=== PATIENT | male | born 1960 ===

== ENCOUNTER 2025-04-01 14:12 | Outpatient (AMB) | payer OTHER, SELFPAY ==
[2025-04-01 14:21] VITALS: BP 130/84; PULSE 83; RESP 16; O2SAT 97; BMI 24.4
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
--- OUTSIDE RECORDS SUMMARY | 2025-04-01 14:45 | XMS_ITS | Clinical Summary ---
Author Organization [facility] Address [address] [place] [address] Care Team Providers Care Ambulatory Technologist Name Role Phone Unavailable Primary Care Provider Unavailabl e Social History Tobacco Use Types Packs/Day Years Used Date Smoking Tobacco: Never Assessed Sex and Gender Information Value Date Recorded Sex Assigned at Not on file Gender Identity Not on file Sexual Orientation Not on file Job Start Date Occupation Industry Not on file Not on file Not on file Plan of Treatment Not on file
--- OUTSIDE RECORDS SUMMARY | 2025-04-01 14:45 | XMS_ITS | Clinical Summary ---
Author Organization [place] [address] Jr [facility] Address [address] [place], [place] [address], [place] [address] Phone Care Team Providers Care Personal Lines Underwriter Name Role Phone Jan Brush MD Primary Care Provider [phone] Allergies Active Allergy Reactions Criticality Noted Date Comments Latex Swelling 08/25/2024 Penicillins Rash 08/25/2024 Medications fluticasone propionate (FLONASE) 50 mcg/actuation nasal spray Administer 2 sprays into each nostril 1 (one) time each day. 03/27/20 24 Active capsaicin (ZOSTRIX) 0.025 % cream Apply topically 2 (two) times a day. 60 g 10/10/19 25 026 Active amLODIPine (NORVASC) 10 mg tabletIndicatio ns:Essential hypertension Take 1 tablet (10 mg total) by mouth 1 (one) time each day. 90 each 1 01/02/20 25 Active famotidine (PEPCID) 20 mg tabletIndicatio ns:Cough, unspecified type Take 1 tablet (20 mg total) by mouth at bedtime as needed for heartburn. 90 tablet 1 02/03/20 25 Active lidocaine (LIDODERM) 5 % patchIndication s:Chest wall pain APPLY 1 PATCH DAILY APPLY TO PAINFUL AREA FOR 12 HOURS PER DAY, REMOVE FOR 12 HOURS 90 patch 1 02/03/20 25 Active tamsulosin (FLOMAX) 0.4 mg 24 hr capsuleIndicati ons:Benign prostatic hyperplasia with lower urinary tract symptoms Take 1 capsule (0.4 mg total) by mouth 1 (one) time each day. 90 capsule 1 02/03/20 25 Active cetirizine (ZyrTEC) 10 mg tabletIndicatio ns:Allergy, sequela Take 1 tablet (10 mg total) by mouth 1 (one) time each day. 90 each 1 02/03/20 25 Active finasteride (PROSCAR) 5 mg tablet Take 1 tablet (5 mg total) by mouth 1 (one) time each day. 03/03/20 25 Active omeprazole (PriLOSEC) [address] capsuleIndicati ons:Gastroesoph ageal reflux disease without esophagitis Take 1 capsule (40 mg total) by mouth 1 (one) time each day. 90 each 1 03/05/20 25 025 Active gabapentin (NEURONTIN) 300 mg capsule TAKE 1 CAPSULE BY MOUTH EVERYDAY AT BEDTIME 30 capsule 5 03/09/20 25 Active omeprazole (PriLOSEC) [address] capsule Take 1 capsule (40 mg total) by mouth 1 (one) time each day. 03/27/20 24 025 Discontinued(R eorder) gabapentin (NEURONTIN) 300 mg capsule Take 1 capsule (300 mg total) by mouth at bedtime. 30 each 2 10/10/19 25 025 Discontinued Active Problems Problem Noted Date Diagnosed Date Hx of laminectomy 09/09/2024 Overview (09/09/2024): L4-5 laminectomy for work injury 11/03 Benign prostatic hyperplasia with incomplete bladder emptying 08/19/2019 Lipoma of anterior chest wall 06/10/2019 Tubular adenoma of colon 03/30/2019 Transaminitis 02/03/2019 Sebaceous cyst 02/16/2014 Allergic rhinitis 10/30/2005 Esophageal reflux 10/30/2005 Backache 10/30/2005 Overview (09/09/2024): IMO update Encounters Date Type Department Care Team Description 03/19/2025 2:00 PM EDT Office Visit Orthopedic Surgery - [address] [place] [address] Rashaad Hui MD Numbness and tingling in left hand (Primary Dx); Traumatic tear of left rotator cuff, unspecified tear extent, subsequent encounter 03/05/2025 2:30 PM EDT Office Visit Internal Medicine - [address] [phone] Dannie Adam NP Anemia, unspecified type (Primary Dx); Gastroesophageal reflux disease without esophagitis; Chronic left shoulder pain 01/01/2025 3:05 PM EDT Lab Draw Station - [address] Weight loss; Blood glucose elevated; Abnormal liver function 01/01/2025 2:30 PM EDT Office Visit Internal Medicine - [address] [phone] Dannie Adam NP Essential hypertension (Primary Dx); Weight loss from Last 3 Months Immunizations Name Administration Dates Next Due Influenza Quadravalent, MDCK , 0.5ml, preservative free (Flucelvax) 6mo and older 07/27/2023,06/02/2020,09/03/2019 Influenza trivalent, with pr eservative (Fluzone; Afluria) 6mo and older 08/07/2012 Td Tetanus diptheria (Tdvax) 7yo and older 01/16 Tdap Tetanus diptheria acell ular pertussis (Boostrix; Adacel) 7yo and older 06/02/2020 Surgical History Surgery Date Site/Laterality Comments MULTIPLE TOOTH EXTRACTIONS PROCEDURE: HISTORICAL DENTAL EXTRACTION; COMMENT: 2 molars extracted LUMBAR LAMINECTOMY 2002 workcom PROCEDURE: HISTORICAL LUMB LAMINECTOMY; COMMENT: L45 disc [facility] ESOPHAGOGASTRODUODENOSCOPY 03/27/2019 PROCEDURE: WI EGD TRANSORAL BIOPSY SINGLE/MULTIPLE; COMMENT: Dx Gastritis. Dr Trammell COLONOSCOPY 03/27/2019 PROCEDURE: HISTORICAL COLONOSCOPY; COMMENT: two 4 to 8mm polyps ascending colon, 2 diminutive in descending OTHER SURGICAL HISTORY 04/22/2020 PROCEDURE: WI BIOPSY PROSTATE INCISIONAL ANY APPROACH; COMMENT: benign (elevated PSA) CYST REMOVAL 10/01/1981 - 09/30/1982 Right wrist Medical History Medical History Date Comments Esophageal reflux 10/30/2005 DX:Esophageal reflux Allergic rhinitis, cause unspecified 10/30/2005 DX:Allergic rhinitis, cause unspecified Backache, unspecified 10/30/2005 DX:Backach e, unspecified Transaminitis 02/03/2019 DX:Transaminitis Gastritis 03/30/2019 DX:Gastritis Colon polyps 03/30/2019 DX:Colon polyps Helicobacter pylori gastritis 04/14/2019 DX :Helicobacter pylori gastritis Family History Medical History Relation Name Comments Stroke Father Other: sudden Mother Relation Name Status Comments Brother Alive x3 healthy Father Katharine, stomac h problems Mother (Age 72) 2003 HTN Sister Alive x4 healthy Social History Tobacco Use Types Packs/Day Years Used Date Smoking Tobacco: Former Cigarettes 1 20 0 10/01/1979 - 10/01/1999 Passive Smoke Exposure: Never Smokeless Tobacco: Former Tobacco Cessation:Counseling Given: Not Answered Alcohol Use Standard Drinks/Week Comments No 0 (1 standard drink = 0.6 oz pur e alcohol) Sex and Gender Information Value Date Recorded Sex Assigned at Not on file Legal Sex Male 12:07 AM EST Gender Identity Not on file Sexual Orientation Not on file Obstetrics History Last Filed Vital Signs Vital Sign Reading Time Taken Comments Blood Pressure 125/75 03/05/2025 2:32 PM EDT Pulse 84 03/05/2025 2:32 PM EDT Temperature 36.6 C (97.9 F) 12/11/2024 8:32 AM EDT Respiratory Rate - - Oxygen Saturation 98% 01/01/2025 2:17 PM EDT Inhaled Oxygen Concentration - - Weight 68 kg (150 lb) 03/19/2025 1:58 PM EDT Height 180.3 cm (5' 11 ) 03/19/2025 1:58 PM EDT Body Mass Index 20.92 03/19/2025 1:58 PM EDT Plan of Treatment Upcoming Encounters Date Type Department Care Team (Late st Contact Info) Description 04/20/2025 2:30 PM EDT Office Visit Orthopedic Surgery - [place] [address] [facility] [address] [place] [phone] Rashaad Hui MD [address] [facility] [address] [place] [address] 09/07/2025 2:30 PM EST Office Visit Internal Medicine - [facility] [address] [place], [place] [phone] Jan Brush MD [address] [place] [address] Health Maintenance Due Date Last Done Comments Pneumococcal Vaccine: 50+ Years (1 of 1 - PCV) 2010 Zoster Vaccines (1 of 2) 2010 Depression Screening 09/09/2022 Social Influencers of Health Screening 09/09/2022 COVID-19 Vaccine ( season) 2024 01/19/2022, 09/01/2021, 01/24/2021, Additional history exists Hypertension/CHF/CAD Annual BMP Blood Test 12/11/2025 12/11/2024, 03/27/2024, 03/27/2024 Cholesterol Screening (Lipid Panel) 03/27/2029 03/27/2024, 03/27/2024 DTaP,Tdap,and Td Vaccines (4 - Td or Tdap) 06/02/2030 06/02/2020, 02/19/2012, 01/17/2008 Colorectal Cancer Screening: Colonoscopy 04/16/2034 04/16/2024 RSV Immunization Adult Patients (1 - 1-dose 75+ series) 2035 HIV Screening Completed 07/03/2012 Hepatitis C Screening Completed 01/16/2022 Influenza Vaccine Completed 08/19/2024, , 06/02/2020, Additional history exists HIB Vaccines Aged Out No longer eligi ble based on patient's age to complete this topic HPV Vaccines Aged Out No longer eligi ble based on patient's age to complete this topic Hepatitis A Vaccines Aged Out No long er eligible based on patient's age to complete this topic Hepatitis B Vaccines Aged Out No long er eligible based on patient's age to complete this topic IPV Vaccines Aged Out No longer eligi ble based on patient's age to complete this topic MMR Vaccines Aged Out No longer eligi ble based on patient's age to complete this topic Meningococcal ACWY Vaccine Aged Out N o longer eligible based on patient's age to complete this topic Meningococcal B Vaccine Aged Out No l onger eligible based on patient's age to complete this topic Pneumococcal Vaccine: Pediatrics (0 to 5 Years) and At-Risk Patients (6 to 64 Years) Aged Out No longer eligible based on patient's age to complete this topic RSV Immunization Patients Under 20 months Aged Out No longer eligible based on patient's age to complete this topic Varicella Vaccines Aged Out No longer eligible based on patient's age to complete this topic Procedures Procedure Name Priority Date/Time Associated Diagnosis Comments CBC WITH AUTO DIFFERENTIAL Routine 03/05/2025 3:18 PM EDT Anemia, unspecified type CBC AND DIFFERENTIAL Routine 03/05/2025 3:18 PM EDT Anemia, unspecified type VITAMIN B12 Routine 03/05/2025 3:18 PM EDT Anemia, unspecified type FOLATE Routine 03/05/2025 3:18 PM EDT Anemia, unspecified type IRON AND TIBC Routine 03/05/2025 3:18 PM EDT Anemia, unspecified type CBC WITH AUTO DIFFERENTIAL Routine 01/01/2025 3:11 PM EDT Weight loss HEPATIC FUNCTION PANEL Routine 3:11 PM EDT Abnormal liver function HEMOGLOBIN A1C Routine 01/01/2025 3:11 PM EDT Blood glucose elevated CBC AND DIFFERENTIAL Routine 01/01/2025 3:11 PM EDT Weight loss COMPREHENSIVE METABOLIC PANEL Routine 12/11/2024 9:41 AM EDT Screening for metabolic disorder COLONOSCOPY Routine 04/16/2024 LIPID PANEL Routine 03/27/2024 HEPATITIS C SCREENING Routine 01/16/2022 HIV SCREENING Routine 07/03/2012 from Last 3 Months or Most Recently Relevant to Health Maintenance Results * (ABNORMAL) CBC auto differential (03/05/2025 3:18 PM EDT) Only the most recent of2 resultswithin the time period is included. [facility] Signature WBC 5.6 4.8 - 10.8 K/mcL LAB [facility] RBC 3.70(L) 4.50 - 5.50 M/mcL LAB HEMETOLOGY METHOD 03/05/2025 6:43 PM EDT [facility] Hemoglobin 12.8(L) 13.5 - 17.5 g/dL LAB HEMETOLOGY METHOD 03/05/2025 6:43 [facility] Hematocrit 39.2(L) 42.0 - 54.0 % LAB HEMETOLOGY METHOD 03/05/2025 6:43 PM [facility] MCV 105.4(H) 79.0 - 98.0 FL LAB HEMETOLOGY METHOD 03/05/2025 6:43 PM [facility] MCH 34.4(H) 27.0 - 32.0 pcg LAB HEMETOLOGY METHOD 03/05/2025 6:43 [facility] MCHC 32.7 32.0 - 37.0 g/dL LAB HEMETOLOGY METHOD 03/05/2025 6:43 PM [facility] RDW 13.0 11.0 - 15.0 % LAB HEMETOLOGY METHOD 03/05/2025 6:43 [facility] Platelets 244 130 - 400 K/mcL LAB HEMETOLOGY METHOD 03/05/2025 6:43 [facility] MPV 9.6 7.0 - 11.0 FL LAB HEMETOLOGY METHOD 03/05/2025 6:43 PM [facility] NRBC 0.0 <1.0 % LAB HEMETOLOGY METHOD 03/05/2025 6:43 PM [facility] NRBC Absolute 0.00 <0.10 K/mcL LAB HEMETOLOGY METHOD 03/05/2025 6:43 PM [facility] Neutrophils Relative 66.5 % LAB HEMETOLOGY METHOD 03/05/2025 6:43 PM [facility] Lymphocytes Relative 25.2 % LAB HEMETOLOGY METHOD 03/05/2025 6:43 PM [facility] Monocytes Relative 5.9 % LAB HEMETOLOGY METHOD 03/05/2025 6:43 PM [facility] Eosinophils Relative 1.4 % LAB HEMETOLOGY METHOD 03/05/2025 6:43 PM [facility] Basophils Relative 0.5 % LAB HEMETOLOGY METHOD 03/05/2025 6:43 PM [facility] Immature Granulocytes Relative 0.5 % LAB HEMETOLOGY METHOD 03/05/2025 6:43 PM [facility] Neutrophils Absolute 3.75 1.50 - 7.00 K/mcL LAB HEMETOLOGY METHOD 03/05/2025 6:43 PM [facility] Lymphocytes Absolute 1.42 1.00 - 5.00 K/mcL LAB HEMETOLOGY METHOD 03/05/2025 6:43 PM [facility] Monocytes Absolute 0.33 0.20 - 1.00 K/mcL LAB HEMETOLOGY METHOD 03/05/2025 6:43 PM [facility] Eosinophils Absolute 0.08 0.00 - 0.50 K/mcL LAB HEMETOLOGY METHOD 03/05/2025 6:43 PM [facility] Basophils Absolute 0.03 0.00 - 0.20 K/mcL LAB HEMETOLOGY METHOD 03/05/2025 6:43 PM [facility] Immature Granulocytes Absolute 0.03 0.00 - 0.03 K/[facility] LAB HEMETOLOGY METHOD 03/05/2025 6:43 PM EDT [facility] Blood Venous blood specimen / Unknown Venipuncture / Unknown 03/05/2025 3:18 PM EDT 03/05/2025 3:18 PM EDT Dannie Adam NP LAB BLOOD ORDERABLES Final Res ult [facility] [address] [place] [address], [place] [phone] * Iron and TIBC (03/05/2025 3:18 PM EDT) Iron 117 50 - 160 mcg/dL LAB CHEMISTRY METHOD 03/05/2025 7:33 PM EDT [facility] TIBC 296 250 - 450 mcg/dL LAB CHEMISTRY METHOD 03/05/2025 7:33 PM EDT [facility] Iron Saturation 40 20 - 50 % LAB CHEMISTRY METHOD 03/05/2025 7:33 PM EDT [facility] Blood Venous blood specimen / Unknown Venipuncture / Unknown 03/05/2025 3:18 PM EDT 03/05/2025 3:18 PM EDT us Dannie Adam NP LAB BLOOD ORDERABLES Final Res ult [facility] [address] [place] [address], [place] [phone] * Folate (03/05/2025 3:18 PM EDT) Folate 13.0 2.8 - 17.0 ng/ml LAB CHEMISTRY METHOD 03/05/2025 7:33 PM EDT [facility] Blood Venous blood specimen / Unknown Venipuncture / Unknown 03/05/2025 3:18 PM EDT 03/05/2025 3:18 PM EDT us Dannie Adam SURGICAL ASSIST LAB BLOOD ORDERABLES Final Res ult [facility] [address] [place] [address], [place] [phone] * Vitamin B12 (03/05/2025 3:18 PM EDT) [facility] Vitamin B-12 340 250 - 900 pcg/mL LAB CHEMISTRY METHOD 03/05/2025 7:33 PM EDT [facility] Blood Venous blood specimen / Unknown Venipuncture / Unknown 03/05/2025 3:18 PM EDT 03/05/2025 3:18 PM EDT us Dannie Adam SURGICAL ASSIST LAB BLOOD ORDERABLES Final Res ult Performing Organization Address [facility]/ZIP Co de Phone Number [facility] [address] [place] [address], [place] [phone] * Hemoglobin A1c (01/01/2025 3:11 PM EDT) [facility] Hemoglobin A1C 5.2 <6.5 % LAB CHEMISTRY METHOD 01/01/2025 11:10 PM EDT [facility] Mean Bld Glu Estim. 103 mg/dL LAB CHEMISTRY METHOD 01/01/2025 11:10 PM EDT [facility] Blood Venous blood specimen / Unknown Venipuncture / Unknown 01/01/2025 3:11 PM EDT 01/01/2025 3:11 PM EDT us Elenita Ho SURGICAL ASSIST LAB BLOOD ORDERABLES Final R esult Performing Organization Address City/[facility]/ZIP Co de Phone Number [facility] [address] [place] [address], [place] [phone] * (ABNORMAL) Hepatic function panel (01/01/2025 3:11 PM EDT) Pathologist [facility] Total Protein 6.8 6.0 - 8.0 g/dL LAB CHEMISTRY METHOD 01/01/2025 7:19 PM EDT [facility] Albumin 3.8 3.2 - 5.0 g/dL LAB CHEMISTRY METHOD 01/01/2025 7:[facility] PM [facility] Total Bilirubin 0.5 0.0 - 1.4 mg/dL LAB CHEMISTRY METHOD 01/01/2025 7:19 PM [facility] Bilirubin, Direct 0.2 0.0 - 0.3 mg/dL LAB CHEMISTRY METHOD 01/01/2025 7:19 PM [facility] Bilirubin, Indirect 0.3 0.0 - 1.1 mg/dL LAB CHEMISTRY METHOD 01/01/2025 7:19 PM [facility] ALT (SGPT) 63(H) 10 - 60 unit/L LAB CHEMISTRY METHOD 01/01/2025 7:19 PM [facility] AST (SGOT) 37 10 - 42 unit/L LAB CHEMISTRY METHOD 01/01/2025 7:19 PM [facility] Alkaline Phosphatase 98 42 - 121 unit/L LAB CHEMISTRY METHOD 01/01/2025 7:19 PM [facility] Blood Venous blood specimen / Unknown Venipuncture / Unknown 01/01/2025 3:11 PM EDT 01/01/2025 3:11 PM EDT us Elenita Ho SURGICAL ASSIST LAB BLOOD ORDERABLES Final R esult [facility] [address] [place] [address], [place] [phone] * (ABNORMAL) Comprehensive metabolic panel (12/11/2024 9:41 AM EDT) [facility] Sodium 139 133 - 145 mmol/L LAB CHEMISTRY METHOD 12/11/2024 2:53 PM [facility] Potassium 4.4 3.5 - 5.5 mmol/L LAB CHEMISTRY METHOD 12/11/2024 2:53 PM [facility] Chloride 104 96 - 110 mmol/L LAB CHEMISTRY METHOD 12/11/2024 2:53 PM [facility] CO2 31 21 - 32 mmol/L LAB CHEMISTRY METHOD 12/11/2024 2:53 PM [facility] Anion Gap 4 3 - 11 LAB CHEMISTRY METHOD 12/11/2024 2:53 PM [facility] Glucose 102(H) 70 - 100 mg/dL LAB CHEMISTRY METHOD 12/11/2024 2:53 PM [facility] BUN 12 5 - 25 mg/dL LAB CHEMISTRY METHOD 12/11/2024 2:53 PM [facility] Creatinine 0.88 0.70 - 1.30 mg/dL LAB CHEMISTRY METHOD 12/11/2024 2:53 PM [facility] eGFR 96 >=60 mL/min/1. 73m2 LAB CHEMISTRY METHOD 12/11/2024 2:53 PM [facility] Comment:Calculation based on the Chronic Kidney Disease Epidemiology Collaboration (CKD-EPI) equation refit without adjustment for race. BUN/Creatinine Ratio 13.6 LAB CHEMISTRY METHOD 12/11/2024 2:53 PM [facility] Calcium 9.5 8.5 - 10.5 mg/dL LAB CHEMISTRY METHOD 12/11/2024 2:53 PM [facility] AST (SGOT) 116(H) 10 - 42 unit/L LAB CHEMISTRY METHOD 12/11/2024 2:53 PM [facility] ALT (SGPT) 96(H) 10 - 60 unit/L LAB CHEMISTRY METHOD 12/11/2024 2:53 PM [facility] Alkaline Phosphatase 101 42 - 121 unit/L LAB CHEMISTRY METHOD 12/11/2024 2:53 PM EDT [facility] Total Protein 6.7 6.0 - 8.0 g/dL LAB CHEMISTRY METHOD 12/11/2024 2:53 PM EDT [facility] Albumin 3.8 3.2 - 5.0 g/dL LAB CHEMISTRY METHOD 12/11/2024 2:53 PM EDT [facility] Total Bilirubin 0.5 0.0 - 1.4 mg/dL LAB CHEMISTRY METHOD 12/11/2024 2:53 PM EDT [facility] Blood Venous blood specimen / Unknown Venipuncture / Unknown 12/11/2024 9:41 AM EDT 12/11/2024 9:41 AM EDT Elenita Ho NP LAB BLOOD ORDERABLES Final R esult [facility] [address] [place] [address], [place] [phone] * Colonoscopy (04/16/2024) [facility] Colonoscopy No Interpretation , Abstracted Anatomical Region Laterality Modality Other [facility] Provider HEALTH MAINTENANCE Final Result * (ABNORMAL) Lipid panel (03/27/2024) [facility] LDL/HDL Ratio 3 0 - 4 Triglycerides 202(A) 0 - 150 mg/dL Cholesterol 178 0 - 200 mg/dL HDL 57 >=40 mg/dL LDL Cholesterol 81 0 - 100 mg/dL Blood Venous blood specimen / Unknown Historical Provider LAB BLOOD ORDERABLES Angela l Result * Hepatitis C Screening (01/16/2022) [facility] Hepatitis C Screening Abstracted Historical Provider HEALTH MAINTENANCE Final Result * HIV Screening (07/03/2012) HIV Screening Abstracted us Historical Provider HEALTH MAINTENANCE Final Result from Last 3 Months or Most Recently Relevant to Health Maintenance Insurance [facility] Care Teams Personal Lines Underwriter Relationship Specialty Start Date End Date Jan Brush MD [address] [place] [id number] PCP - General Internal Medicine 08/12/20
== END 2025-04-01 14:41 | disposition home or self-care (01) ==
LOC: HO.PMC 14:12
PROVIDERS: PCP Internal Medicine; Referring Provider Nurse Practitioner Primary Care; Visit Provider Anesthesiology
DX: M54.12 Radiculopathy, cervical region (principal); M50.30 Other cervical disc degeneration, unspecified cervical region; M47.812 Spondylosis without myelopathy or radiculopathy, cervical region
CPT/HCPCS: 99203

== ENCOUNTER → 2025-04-01 14:12 | Outpatient (BNVA) | payer OTHER, SELFPAY | PROVIDERS: PCP Internal Medicine; Referring Provider Nurse Practitioner Primary Care; Visit Provider Anesthesiology | DX: M54.12 Radiculopathy, cervical region (principal); M50.30 Other cervical disc degeneration, unspecified cervical region; M47.812 Spondylosis without myelopathy or radiculopathy, cervical region | CPT/HCPCS: 99202 ==

== ENCOUNTER → 2025-04-16 17:31 | Outpatient (BNV) | payer OTHER, SELFPAY | PROVIDERS: Visit Provider Radiology Diagnostic Radiology | DX: M54.12 Radiculopathy, cervical region (principal) | CPT/HCPCS: 72141 ==

== ENCOUNTER 2025-04-16 17:36 | Outpatient (REF) | payer OTHER, SELFPAY ==
--- NOTE | ~2025-04-16 | MR_ITS ---
EXAMINATION: MR CERVICAL SPINE WITHOUT CONTRAST CLINICAL INFORMATION: Radiculopathy, cervical region. Coronary accident last August, neck pain and stiffness. 64-year-old male. COMPARISON: None TECHNIQUE: Multiplanar multisequence MR imaging of the cervical spine was done prior to and without the administration IV gadolinium. Examination was performed on a 1.5 Abena Siemens unit, using standard sequences. FINDINGS: CORONAL ALIGNMENT: -Normal. SAGITTAL ALIGNMENT: -Normal lordosis. No subluxations. CRANIOCERVICAL JUNCTION/C1-2 ARTICULATIONS: -Intact and aligned. VERTEBRAL BODIES/BONE MARROW: -No fractures, compression deformities, or suspicious infiltrating bone marrow signal abnormalities. -No gross bone marrow edema. -There is a hemangioma in C6. DISCS: -Mild diffuse loss of disc signal without significant loss of disc height. CERVICAL CORD: -Normal in signal and caliber throughout. No expansion or thinning. No cord impingement present. PARAVERTEBRAL SOFT TISSUES: -Normal. No paravertebral or paraspinous edema or abnormal fluid collection. -The thyroid is obscured by a saturation band. VISUALIZED INTRACRANIAL STRUCTURES: -Within normal limits. AXIAL DISC SPACE IMAGING: C2-C3: No central canal or neural foraminal narrowing. Normal facets. C3-C4: There is mild right uncinate spurring. Normal facets. There is no central canal narrowing. There is mild right and minimal left neural foraminal narrowing. C4-C5: There is very mild bilateral uncinate spurring. There is early degenerative facet change bilaterally. No central canal narrowing. There is mild right greater than left neural foraminal narrowing. C5-C6: There is a small central disc protrusion which indents upon the ventral thecal sac but does not contact cord. This does not result in significant central canal narrowing. Minimal uncinate spurring bilaterally. Normal facets. There is mild right greater than left neural foraminal narrowing. C6-C7: Minimal shallow concentric disc bulge, mild bilateral uncinate spurring, normal appearing facets, with findings resulting in minimal central canal narrowing, and mild right greater than left neural foraminal narrowing. C7-T1: There is a small central disc protrusion which indents upon the ventral thecal sac but does not contact the cord. There is minimal central canal narrowing. Mild bilateral uncinate spurring is present, normal appearing facets, resulting in minimal bilateral neural foraminal narrowing. T1-T4: There is no central canal or neural foraminal narrowing. MR/MR cervical spine wo con IMPRESSION: 1. Mild spondylosis of the cervical spine. There is no evidence of significant central canal narrowing or cord impingement. Scattered mild neural foraminal narrowings. 2. The cord is normal in caliber and signal throughout. 3. There is no bone marrow edema or acute bony abnormality. Electronically signed by: Ru Silva MD 04/17/2025 08:19 AM EDT
--- OUTSIDE RECORDS SUMMARY | 2025-04-16 17:38 | XMS_ITS | Clinical Summary ---
Author Organization [place] [address] [facility] Address [address] [place], [place] [address], [place] [address] Phone Care Team Providers Care Desk Operator Name Role Phone Jan Brush MD Primary Care Provider [phone] Allergies Active Allergy Reactions Criticality Noted Date Comments Latex Swelling 08/25/2024 Penicillins Rash 08/25/2024 Medications fluticasone propionate (FLONASE) 50 mcg/actuation nasal spray Administer 2 sprays into each nostril 1 (one) time each day. 4 Active capsaicin (ZOSTRIX) 0.025 % cream Apply topically 2 (two) times a day. 60 g 5 10/10/19 26 Active amLODIPine (NORVASC) 10 mg tabletIndications :Essential hypertension Take 1 tablet (10 mg total) by mouth 1 (one) time each day. 90 each 1 5 Active famotidine (PEPCID) 20 mg tabletIndications :Cough, unspecified type Take 1 tablet (20 mg total) by mouth at bedtime as needed for heartburn. 90 tablet 1 5 Active lidocaine (LIDODERM) 5 % patchIndications: Chest wall pain APPLY 1 PATCH DAILY APPLY TO PAINFUL AREA FOR 12 HOURS PER DAY, REMOVE FOR 12 HOURS 90 patch 1 5 Active tamsulosin (FLOMAX) 0.4 mg 24 hr capsuleIndication s:Benign prostatic hyperplasia with lower urinary tract symptoms Take 1 capsule (0.4 mg total) by mouth 1 (one) time each day. 90 capsule 1 5 Active cetirizine (ZyrTEC) 10 mg tabletIndications :Allergy, sequela Take 1 tablet (10 mg total) by mouth 1 (one) time each day. 90 each 1 5 Active finasteride (PROSCAR) 5 mg tablet Take 1 tablet (5 mg total) by mouth 1 (one) time each day. 5 Active omeprazole (PriLOSEC) [address] capsuleIndication s:Gastroesophagea l reflux disease without esophagitis Take 1 capsule (40 mg total) by mouth 1 (one) time each day. 90 each 1 5 09/01/20 25 Active gabapentin (NEURONTIN) 300 mg capsule TAKE 1 CAPSULE BY MOUTH EVERYDAY AT BEDTIME 30 capsule 5 5 Active Active Problems Problem Noted Date Diagnosed Date Hx of laminectomy 09/09/2024 Overview (09/09/2024): L4-5 laminectomy for work injury 11/03 Benign prostatic hyperplasia with incomplete bladder emptying 08/19/2019 Lipoma of anterior chest wall 06/10/2019 Tubular adenoma of colon 03/30/2019 Transaminitis 02/03/2019 Sebaceous cyst 02/16/2014 Allergic rhinitis 10/30/2005 Esophageal reflux 10/30/2005 Backache 10/30/2005 Overview (09/09/2024): IMO update Encounters Date Type Department Care Team Description 04/07/2025 5:38 PM EDT - 04/07/2025 11:59 PM EDT Hospital Encounter [facility] MRI [address] [place] [id number] Traumatic tear of left rotator cuff, unspecified tear extent, subsequent encounter Discharge Disposition: Home or Self Care 03/19/2025 2:00 PM EDT Office Visit Orthopedic Surgery - [place] [address] [place] [phone] Rashaad Hui MD Numbness and tingling in left hand (Primary Dx); Traumatic tear of left rotator cuff, unspecified tear extent, subsequent encounter 03/05/2025 2:30 PM EDT Office Visit Internal Medicine - [place] [address] [place] [address] Dannie Adam, MATHEUS Anemia, unspecified type (Primary Dx); Gastroesophageal reflux disease without esophagitis; Chronic left shoulder pain from Last 3 Months Immunizations Name Administration [...] PROCEDURE: HISTORICAL LUMB LAMINECTOMY; COMMENT: L45 disc [facility] ESOPHAGOGASTRODUODENOSCOPY 03/27/2019 PROCEDURE: LA EGD TRANSORAL BIOPSY SINGLE/MULTIPLE; COMMENT: Dx Gastritis. Dr Trammell COLONOSCOPY 03/27/2019 PROCEDURE: HISTORICAL COLONOSCOPY; COMMENT: two 4 to 8mm polyps ascending colon, 2 diminutive in descending OTHER SURGICAL HISTORY 04/22/2020 PROCEDURE: LA BIOPSY PROSTATE INCISIONAL ANY APPROACH; COMMENT: benign [...] Status Comments Brother Alive x3 healthy Father [place], stomac h problems Mother (Age 72) 2003 [...] PM EDT Office Visit Orthopedic Surgery - [place] [address] [place] [phone] Rashaad Hui MD [address] [place] [address] 09/07/2025 2:30 PM EST Office Visit Internal Medicine - [facility] [address] [place] [address] Jan Brush MD [address] [place] [address] Health Maintenance Due Date Last Done Comments Pneumococcal Vaccine: 50+ Years (1 of 1 - PCV) 2010 Zoster Vaccines (1 of 2) 2010 Depression Screening 09/09/2022 Social Influencers of Health Screening 09/09/2022 COVID-19 Vaccine ( season) 2024 01/19/2022, 09/01/2021, 01/24/2021, Additional history exists Influenza Vaccine (#1) 2025 , 07/27/2023, 06/02/2020, Additional history exists Hypertension/CHF/CAD Annual BMP Blood Test 12/11/2025 12/11/2024, 03/27/2024, 03/27/2024 Cholesterol Screening (Lipid Panel) 03/27/2029 03/27/2024, 03/27/2024 DTaP,Tdap,and Td Vaccines (4 - Td or Tdap) 06/02/2030 06/02/2020, 02/19/2012, 01/17/2008 Colorectal Cancer Screening: Colonoscopy 04/16/2034 04/16/2024 RSV Immunization Adult Patients (1 - 1-dose 75+ series) 2035 HIV Screening Completed 07/03/2012 Hepatitis C Screening Completed 01/16/2022 HIB Vaccines Aged Out No longer eligi [...] Procedure Name Priority Date/Time Associated Diagnosis Comments MR SHOULDER WO CONTRAST LEFT Routine 04/07/2025 7:22 PM EDT Traumatic tear of left rotator cuff, unspecified tear extent, subsequent encounter CBC WITH AUTO DIFFERENTIAL Routine 03/05/2025 3:18 PM EDT Anemia, unspecified type CBC AND DIFFERENTIAL Routine 03/05/2025 3:18 PM EDT Anemia, unspecified type VITAMIN B12 Routine 03/05/2025 3:18 PM EDT Anemia, unspecified type FOLATE Routine 03/05/2025 3:18 PM EDT Anemia, unspecified type IRON AND TIBC Routine 03/05/2025 3:18 PM EDT Anemia, unspecified type COMPREHENSIVE METABOLIC PANEL Routine 12/11/2024 9:41 AM EDT Screening for metabolic disorder COLONOSCOPY Routine 04/16/2024 LIPID PANEL Routine 03/27/2024 HEPATITIS C SCREENING Routine 01/16/2022 HIV SCREENING Routine 07/03/2012 from Last 3 Months or Most Recently Relevant to Health Maintenance Results * MR Shoulder wo Contrast Left (04/07/2025 7:22 PM EDT) Anatomical Region Laterality Modality Upper Extremities, Shoulder Left Magn etic Resonance 04/08/2025 4:17 AM EDT Impressions 04/08/2025 4:22 AM EDT 1. Moderate left AC joint arthropathy 2. Degenerative signal and/or labral tearing of the superior labrum at the level of the bicipital labral complex extending anterior to posterior 3. Mild supraspinatus and infraspinatus tendinosis without tear -------- FINAL REPORT -------- Dictated By: Tiffany Leiva Dictated Date: 04/08/2025 04:17 ET Assigned Physician: Tiffany Leiva Reviewed and Electronically Signed By: Tiffany Leiva Signed Date: 04/08/2025 04:22 ET Workstation ID: [id number] Transcribed By: Self Edit Transcribed Date: 04/08/2025 04:17 ET Narrative 04/08/2025 4:22 AM EDT INDICATION: rotator cuff tear proximal biceps tendon rupture, possible SLAP tear, subacromial bursitis versus possible rotator cuff tear. COMPARISON: None TECHNIQUE: Multiplanar, multisequence MRI examination was performed of the left shoulder without intravenous contrast. FINDINGS: Rotator Cuff: Mild supraspinatus and infraspinatus tendinosis. Narrowing of the acromiohumeral interval. Subscapularis tendon is intact. No rotator cuff tear. No significant muscle volume loss or fatty infiltration. Biceps Tendon: Intra-articular biceps tendinosis without tear. Labrum: Heterogeneity of the superior labrum at the bicipital labral complex cyst extending anterior to posterior which may represent degenerative signal/tearing. Bone/Cartilage: No acute fracture or dislocation of the left shoulder. Heterogeneous bone marrow signal with cystic change along the greater tuberosity. Mild cartilage thinning of the humeral head. AC Joint: Moderate left AC joint arthropathy. Miscellaneous:Small amount of subacromial/subdeltoid bursal fluid. Small amount of left shoulder joint fluid with thickening of the inferior axillary pouch. Nonenlarged left axillary lymph nodes. Procedure Note Tiffany Leiva MD - 04/08/2025 INDICATION: rotator cuff tear proximal biceps tendon rupture, possibleSLAP tear, subacromial bursitis versus possible rotator cuff tear. COMPARISON: None TECHNIQUE: Multiplanar, multisequence MRI examination was performed ofthe left shoulder without intravenous contrast. FINDINGS: Rotator Cuff: Mild supraspinatus and infraspinatus tendinosis. Narrowingof the acromiohumeral interval. Subscapularis tendon is intact. Norotator cuff tear. No significant muscle volume loss or fattyinfiltration. Biceps Tendon: Intra-articular biceps tendinosis without tear. Labrum: Heterogeneity of the superior labrum at the bicipital labralcomplex cyst extending anterior to posterior which may representdegenerative signal/tearing. Bone/Cartilage: No acute fracture or dislocation of the left shoulder.Heterogeneous bone marrow signal with cystic change along the greatertuberosity. Mild cartilage thinning of the humeral head. AC Joint: Moderate left AC joint arthropathy. Miscellaneous:Small amount of subacromial/subdeltoid bursal fluid. Smallamount of left shoulder joint fluid with thickening of the inferioraxillary pouch. Nonenlarged left axillary lymph nodes. IMPRESSION: 1. Moderate left AC joint arthropathy 2. Degenerative signal and/or labral tearing of the superior labrum atthe level of the bicipital labral complex extending anterior toposterior 3. Mild supraspinatus and infraspinatus tendinosis without tear -------- FINAL REPORT -------- Dictated By: Tiffany Leiva Dictated Date: 04/08/2025 04:17 ET Assigned Physician: Tiffany Leiva Reviewed and Electronically Signed By: Tiffany Leiva Signed Date: 04/08/2025 04:22 ET Workstation ID: [id number] Transcribed By: Self Edit Transcribed Date: 04/08/2025 04:17 ET Rashaad Hui MD IM MRI PROCEDURES Final Result * (ABNORMAL) CBC auto differential (03/05/2025 3:18 PM EDT) WBC 5.6 4.8 - 10.8 K/mcL LAB HEMETOLOGY METHOD [facility] RBC 3.70(L) 4.50 - 5.50 M/mcL LAB HEMETOLOGY METHOD 03/05/2025 6:43 PM [facility] Hemoglobin 12.8(L) 13.5 - 17.5 g/dL LAB HEMETOLOGY METHOD 03/05/2025 6:43 PM [facility] Hematocrit 39.2(L) 42.0 - 54.0 % LAB HEMETOLOGY METHOD 03/05/2025 6:43 PM [facility] MCV 105.4(H) 79.0 - 98.0 FL LAB HEMETOLOGY METHOD 03/05/2025 6:43 PM [facility] MCH 34.4(H) 27.0 - 32.0 pcg LAB HEMETOLOGY METHOD 03/05/2025 6:43 PM [facility] MCHC 32.7 32.0 - 37.0 g/dL LAB HEMETOLOGY METHOD 03/05/2025 6:43 PM [facility] RDW 13.0 11.0 - 15.0 % LAB HEMETOLOGY METHOD 03/05/2025 6:43 PM [facility] Platelets 244 130 - 400 K/mcL LAB HEMETOLOGY METHOD 03/05/2025 6:43 PM [facility] MPV 9.6 7.0 - 11.0 FL LAB HEMETOLOGY METHOD 03/05/2025 6:43 PM [facility] NRBC 0.0 <1.0 % LAB HEMETOLOGY METHOD 03/05/2025 6:43 PM [facility] NRBC Absolute 0.00 <0.10 K/mcL LAB HEMETOLOGY METHOD 03/05/2025 6:43 PM [facility] Neutrophils Relative 66.5 % LAB HEMETOLOGY METHOD 03/05/2025 6:43 PM [facility] Lymphocytes Relative 25.2 % LAB HEMETOLOGY METHOD 03/05/2025 6:43 PM [facility] Monocytes Relative 5.9 % LAB HEMETOLOGY METHOD 03/05/2025 6:43 PM [facility] Eosinophils Relative 1.4 % LAB HEMETOLOGY METHOD 03/05/2025 6:43 PM [facility] Basophils Relative 0.5 % LAB HEMETOLOGY METHOD 03/05/2025 6:43 PM [facility] Immature Granulocytes Relative 0.5 % LAB HEMETOLOGY METHOD 03/05/2025 6:43 PM [facility] Neutrophils Absolute 3.75 1.50 - 7.00 K/mcL LAB HEMETOLOGY METHOD 03/05/2025 6:43 PM [facility] Lymphocytes Absolute 1.42 1.00 - 5.00 K/mcL LAB HEMETOLOGY METHOD 03/05/2025 6:43 PM EDT [facility] Monocytes Absolute 0.33 0.20 - 1.00 K/[facility] LAB HEMETOLOGY METHOD 03/05/2025 6:43 PM EDT [facility] Eosinophils Absolute 0.08 0.00 - 0.50 K/[facility] LAB HEMETOLOGY METHOD 03/05/2025 6:43 PM EDT [facility] Basophils Absolute 0.03 0.00 - 0.20 K/[facility] LAB HEMETOLOGY METHOD 03/05/2025 6:43 PM EDT [facility] Immature Granulocytes Absolute 0.03 0.00 - 0.03 K/[facility] LAB HEMETOLOGY METHOD 03/05/2025 6:43 PM EDT [facility] Blood Venous blood specimen / Unknown Venipuncture / Unknown 03/05/2025 3:18 PM EDT 03/05/2025 3:18 PM EDT us Dannie Adam NP LAB BLOOD ORDERABLES Final Res ult [facility] [address] [place] [address], * Iron and TIBC (03/05/2025 3:18 PM EDT) Iron 117 50 - 160 mcg/dL LAB CHEMISTRY METHOD 03/05/2025 7:33 PM EDT [facility] TIBC 296 250 - 450 mcg/dL LAB CHEMISTRY METHOD 03/05/2025 7:33 PM EDT [facility] Iron Saturation 40 20 - 50 % LAB CHEMISTRY METHOD 03/05/2025 7:33 PM EDT [facility] Blood Venous blood specimen / Unknown Venipuncture / Unknown 03/05/2025 3:18 PM EDT 03/05/2025 3:18 PM EDT us Dannie Adam NP LAB BLOOD ORDERABLES Final Res ult Performing Organization Address [facility] Co de Phone Number [facility] [address] [place] [address], [place] [phone] * Folate (03/05/2025 3:18 PM EDT) [facility] Folate 13.0 2.8 - 17.0 ng/ml LAB CHEMISTRY METHOD 03/05/2025 7:33 PM EDT [facility] Blood Venous blood specimen / Unknown Venipuncture / Unknown 03/05/2025 3:18 PM EDT 03/05/2025 3:18 PM EDT us Dannie Adam NP LAB BLOOD ORDERABLES Final Res ult Performing Organization Address [facility] Co de Phone Number [facility] [address] [place] [address], [place] [phone] * Vitamin B12 (03/05/2025 3:18 PM EDT) [facility] Vitamin B-12 340 250 - 900 pcg/mL LAB CHEMISTRY METHOD 03/05/2025 7:33 PM EDT [facility] Blood Venous blood specimen / Unknown Venipuncture / Unknown 03/05/2025 3:18 PM EDT 03/05/2025 3:18 PM EDT us Dannie Adam NP LAB BLOOD ORDERABLES Final Res ult Performing Organization Address City/[facility]/ZIP Co de Phone Number [facility] [address] [place] [address], [place] [phone] * (ABNORMAL) Comprehensive metabolic panel (12/11/2024 9:41 AM EDT) [facility] Sodium 139 133 - 145 mmol/L LAB CHEMISTRY METHOD 12/11/2024 2:53 PM [facility] Potassium 4.4 3.5 - 5.5 mmol/L LAB CHEMISTRY METHOD 12/11/2024 2:53 PM [facility] Chloride 104 96 - 110 mmol/L LAB CHEMISTRY METHOD 12/11/2024 2:53 PM [facility] CO2 31 21 - 32 mmol/L LAB CHEMISTRY METHOD 12/11/2024 2:53 PM [facility] Anion Gap 4 3 - 11 LAB CHEMISTRY METHOD 12/11/2024 2:53 PM [facility] Glucose 102(H) 70 - 100 mg/dL LAB CHEMISTRY METHOD 12/11/2024 2:53 PM [facility] BUN 12 5 - 25 mg/dL LAB CHEMISTRY METHOD 12/11/2024 2:53 PM [facility] Creatinine 0.88 0.70 - 1.30 mg/dL LAB CHEMISTRY METHOD 12/11/2024 2:53 PM [facility] eGFR 96 >=60 mL/min/1. 73m2 LAB CHEMISTRY METHOD 12/11/2024 2:53 PM [facility] Comment:Calculation based on the Chronic Kidney Disease Epidemiology Collaboration (CKD-EPI) equation refit without adjustment for race. BUN/Creatinine Ratio 13.6 LAB CHEMISTRY METHOD 12/11/2024 2:53 PM [facility] Calcium 9.5 8.5 - 10.5 mg/dL LAB CHEMISTRY METHOD 12/11/2024 2:53 PM [facility] AST (SGOT) 116(H) 10 - 42 unit/L LAB CHEMISTRY METHOD 12/11/2024 2:53 PM [facility] ALT (SGPT) 96(H) 10 - 60 unit/L LAB CHEMISTRY METHOD 12/11/2024 2:53 PM [facility] Alkaline Phosphatase 101 42 - 121 unit/L LAB CHEMISTRY METHOD 12/11/2024 2:53 PM EDT [facility] Total Protein 6.7 6.0 - 8.0 g/dL LAB CHEMISTRY METHOD 12/11/2024 2:53 PM EDT [facility] Albumin 3.8 3.2 - 5.0 g/dL LAB CHEMISTRY METHOD 12/11/2024 2:53 PM EDT [facility] Total Bilirubin 0.5 0.0 - 1.4 mg/dL LAB CHEMISTRY METHOD 12/11/2024 2:53 PM EDT [facility] Blood Venous blood specimen / Unknown Venipuncture / Unknown 12/11/2024 9:41 AM EDT 12/11/2024 9:41 AM EDT Elenita Ho NP LAB BLOOD ORDERABLES Final R esult [facility] [address] [place] [address], [place] [phone] * Colonoscopy (04/16/2024) [facility] Colonoscopy No Interpretation , Abstracted Anatomical Region Laterality Modality Other Historical Provider HEALTH MAINTENANCE Final Result * (ABNORMAL) Lipid panel (03/27/2024) [facility] LDL/HDL Ratio 3 0 - 4 Triglycerides 202(A) 0 - 150 mg/dL Cholesterol 178 0 - 200 mg/dL HDL 57 >=40 mg/dL LDL Cholesterol 81 0 - 100 mg/dL Blood Venous blood specimen / Unknown Historical Provider LAB BLOOD ORDERABLES Angela l Result * Hepatitis C Screening (01/16/2022) [facility] Hepatitis C Screening Abstracted Historical Provider HEALTH MAINTENANCE Final Result * HIV Screening (07/03/2012) HIV Screening Abstracted us Historical Provider HEALTH MAINTENANCE Final Result from Last 3 Months or Most Recently Relevant to Health Maintenance Insurance [facility] [employer] Care Teams Desk Operator Relationship Specialty Start Date End Date Jan Brush MD [address] [place] [id number] PCP - General Internal Medicine 08/12/20
== END 2025-04-16 17:37 | disposition home or self-care (01) ==
LOC: HO.MRI 17:36
PROVIDERS: Visit Provider Anesthesiology
DX: M54.12 Radiculopathy, cervical region (principal)
CPT/HCPCS: 72141

== ENCOUNTER 2025-05-27 10:00 | Outpatient (REF) | payer OTHER, SELFPAY ==
--- NOTE | 2025-05-27 10:02 | EMG_ITS ---
Chief complaint: Left neck/shoulder pain radiating down to left hand. Denies symptoms on right hand. Reason for referral: Evaluate for radiculopathy Referred by: Otis GAUTHIER Procedure done: Bilateral upper extremities NCS/EMG Precautions and/or limitations: None The limb temperature was monitored continuously and remained between 32-36 degrees C during the performance of the NCS. Nerve Conduction Studies Anti Sensory Summary Table ?Stim Site NR Onset (ms) Norm Onset (ms) Peak (ms) Norm Peak (ms) O-P Amp (?V) Norm O-P Amp Site1 Site2 Delta-0 (ms) Dist (cm) Brian (m/s) Norm Brian (m/s) Left Median Anti Sensory (2nd Digit) Wrist ? 2.4 3.2 <3.6 22.1 >10 Wrist 2nd Digit 2.4 14.0 58 Right Median Anti Sensory (2nd Digit) Wrist ? 2.3 3.0 <3.6 23.2 >10 Wrist 2nd Digit 2.3 14.0 61 Left Ulnar Anti Sensory (5th Digit) Wrist ? 2.1 3.0 <3.7 27.5 >15.0 Wrist 5th Digit 2.1 14.0 67 Right Ulnar Anti Sensory (5th Digit) Wrist ? 2.5 3.2 <3.7 19.1 >15.0 Wrist 5th Digit 2.5 14.0 56 Motor Summary Table ?Stim Site NR Onset (ms) Norm Onset (ms) O-P Amp (mV) Norm O-P Amp iAmp (mV) Amp (1st) (%) Site1 Site2 Delta-0 (ms) Dist (cm) Brian (m/s) Norm Brian (m/s) Left Median Motor (Abd Poll Brev) Wrist ? 3.3 <3.9 8.0 >4.5 9.3 100.0 Elbow Wrist 4.7 25.0 53 >45 Elbow ? 8.0 7.9 9.6 98.8 Right Median Motor (Abd Poll Brev) Wrist ? 2.8 <3.9 5.6 >4.5 7.6 100.0 Elbow Wrist 4.7 24.0 51 >45 Elbow ? 7.5 5.5 7.1 98.2 Left Ulnar Motor (Abd Dig Minimi) Wrist ? 2.9 <3.0 10.8 >5 13.2 100.0 B Elbow Wrist 4.2 23.0 55 >45 B Elbow ? 7.1 9.4 11.9 87.0 A Elbow B Elbow 1.7 10.0 59 >45 A Elbow ? 8.8 8.8 11.3 81.5 Right Ulnar Motor (Abd Dig Minimi) Wrist ? 2.7 <3.0 11.0 >5 13.0 100.0 B Elbow Wrist 4.3 23.5 55 >45 B Elbow ? 7.0 10.7 12.5 97.3 A Elbow B Elbow 1.5 10.0 67 >45 A Elbow ? 8.5 10.0 11.8 90.9 Comparison Summary Table ?Stim Site NR Peak (ms) Norm Peak (ms) P-T Amp (?V) Site1 Site2 Delta-P (ms) Norm Delta (ms) Left Median/Radial Dig I Comparison (Digit 1 - 10cm) Median ? 2.6 <2.9 36.1 Median Radial 0.2 Radial ? 2.4 <2.8 10.1 EMG ?Side Muscle Nerve Root Ins Act Fibs Psw Amp Dur Poly Recrt Int Pat Comment Left 1stDorInt Ulnar C8-T1 Nml Nml Nml Nml Nml 0 Nml Complete Left FlexCarRad Median C6-7 Incr 1+ 1+ Nml Nml 0 Nml Complete Left Biceps Musculocut C5-6 Nml Nml Nml Nml Nml 0 Nml Complete Left Triceps Radial C6-7-8 Nml Nml Nml Nml Nml 0 Nml Complete Left Deltoid Axillary C5-6 Nml Nml Nml Nml Nml 0 Nml Complete Paraspinal EMG ?Side Muscle Nerve Root Ins Act Fibs Psw Comment Right Cervical Upper Rami Nml Nml Nml Right Cervical Mid Rami Nml Nml Nml Right Cervical Lower Rami Nml Nml Nml Left Cervical Upper Rami Nml Nml Nml Left Cervical Mid Rami Incr 1+ 1+ Left Cervical Lower Rami Incr 1+ 1+ FINDINGS: All motor and sensory nerves tested showed normal latencies, amplitudes and conduction velocities. Concentric needle EMG was performed in selected muscles of the left upper extremity and bilateral cervical paraspinals. Study revealed signs of electric abnormalities as shown in the table above. Left FCR showed increased insertional activity, PSWs and fibrillations. Left mid-low cervical paraspinals showed increased insertional activity, PSWs and fibrillations. IMPRESSION: 1. This is an abnormal study. 2. There is electrodiagnostic evidence for left C6/7 radiculopathy. 3. There is no electrodiagnostic evidence for median neuropathy, ulnar neuropathy, or brachial plexopathy. CLINICAL COMMENT: Patient has been following with pain management for this left-sided neck pain. Thank you for your kind referral. Stella Tsai MD, DAVINA Board Certified, [place] [employer] and Rehabilitation (ABPMR) Board Certified, [place] Board of Electrodiagnostic Medicine (ABEM) CODIN [id number] MTDD
--- OUTSIDE RECORDS SUMMARY | 2025-05-27 10:45 | XMS_ITS | Clinical Summary ---
Author Organization [place] [address] [facility] Address [address] [place], [place] [address], [place] [address] Phone Care Team Providers Care Hatchery Worker Name Role Phone Jan Brush MD Primary Care Provider [phone] Allergies Active Allergy Reactions Criticality Noted Date [...] Encounters Date Type Department Care Team Description 04/20/2025 2:30 PM EDT Office Visit Orthopedic Surgery [facility] [address] [facility] [address] [place] [phone] Rashaad Hui MD Numbness and tingling in left hand (Primary Dx); Rotator cuff tendinitis, left 04/07/2025 5:38 PM EDT - 04/07/2025 11:59 PM EDT Hospital Encounter [facility] MRI [address] [place] [id number] Traumatic tear of left rotator cuff, unspecified tear extent, subsequent encounter Discharge Disposition: Home or Self Care 03/19/2025 2:00 PM EDT Office Visit Orthopedic Surgery [facility] [address] [place] [address] Rashaad Hui MD Numbness and tingling in left hand (Primary Dx); Traumatic tear of left rotator cuff, unspecified tear extent, subsequent encounter 03/05/2025 2:30 PM EDT Office Visit Internal Medicine - [facility] [address] [place] [phone] Dannie Adam NP Anemia, unspecified type (Primary [...] PROCEDURE: HISTORICAL LUMB LAMINECTOMY; COMMENT: L45 disc [facility] ESOPHAGOGASTRODUODENOSCOPY 03/27/2019 PROCEDURE: NE EGD TRANSORAL BIOPSY SINGLE/MULTIPLE; COMMENT: Dx Gastritis. Dr Trammell COLONOSCOPY 03/27/2019 PROCEDURE: HISTORICAL COLONOSCOPY; COMMENT: two 4 to 8mm polyps ascending colon, 2 diminutive in descending OTHER SURGICAL HISTORY 04/22/2020 PROCEDURE: NE BIOPSY PROSTATE INCISIONAL ANY APPROACH; COMMENT: benign [...] 03/19/2025 1:58 PM EDT Plan of Treatment Health Maintenance Due Date Last Done Comments Pneumococcal Vaccine: 50+ Years (1 of 1 - PCV) 2010 Zoster Vaccines (1 of 2) 2010 Social Influencers of Health Screening 09/09/2022 COVID-19 Vaccine ( season) 2024 01/19/2022, 09/01/2021, 01/24/2021, Additional history exists Depression Screening 10/01/2024 Influenza Vaccine (#1) 2025 , 07/27/2023, 06/02/2020, [...] Procedure Name Priority Date/Time Associated Diagnosis Comments NE ARTHROCENTESIS/ASPIRAT ION/INJECTION MAJOR JOINT/BURSA W/O U/S GUIDANCE Routine 04/20/2025 2:30 PM EDT Rotator cuff tendinitis, left MR SHOULDER WO CONTRAST LEFT Routine 04/07/2025 [...] 9:41 AM EDT Screening for metabolic disorder HM COLONOSCOPY Routine 04/16/2024 LIPID PANEL Routine 03/27/2024 HEPATITIS C SCREENING Routine 01/16/2022 HIV SCREENING Routine 07/03/2012 from Last 3 Months or Most Recently Relevant to Health Maintenance Results * NE ARTHROCENTESIS/ASPIRATION/INJECTION MAJOR JOINT/BURSA W/O U/S GUIDANCE (04/20/2025 2:30 PM EDT) Rashaad Posada MD - 04/20/2025 2:30 PM EDT Rashaad Hui MD 04/20/2025 5:28 PM L Inj/Asp: L subacromial bursa Indications: pain Details: 22 G needle, posterior approach Medications: 40 mg triamcinolone acetonide 40 mg/mL Outcome: tolerated well, no immediate complications Site was prepped in standard fashion using alcohol swab, sterile technique was used to perform the injection, the patient tolerated the procedure well and a band-aid dressing was applied Informed Consent: Site: Left subacromial Laterality: Left Relevant images/test results available and reviewed: yes Health status cleared: Yes Procedure/treatment, purpose, treatment alternatives, risks/potential complications and benefits explained: yes Risk/complications/benefits details: Risk/complications/benefits details: Risks and benefits of corticosteroid injection were discussed, including risk of pain, bleeding, infection, tissue attenuation, tendon rupture, changes in skin color, and injury to surrounding structures such as arteries, veins and nerves. We also discussed the patient may develop worsening pain for a few days before having improvement in their symptoms. Patient questions answered: yes Patient agrees, verbalizes understanding, and wants to proceed: yes Consent given by: Patient Informed consent discussion completed by Physician/ARIAS with patient: Verbal Pre-procedure timeout performed: yes us Rashaad Hui MD IN CLINIC/BEDSIDE ORDERABLES Fin al Result * MR Shoulder wo Contrast Left (04/07/2025 [...] Signed Date: 04/08/2025 04:22 ET Workstation ID: [id number] Transcribed By: Self Edit Transcribed Date: 04/08/2025 [...] Signed Date: 04/08/2025 04:22 ET Workstation ID: [id number] Transcribed By: Self Edit Transcribed Date: 04/08/2025 04:17 ET Rashaad Hui MD [facility] MRI PROCEDURES Final Result * (ABNORMAL) CBC auto differential (03/05/2025 3:18 PM EDT) WBC 5.6 4.8 - 10.8 K/mcL LAB HEMETOLOGY METHOD 03/05/2025 6:43 PM [facility] RBC 3.70(L) 4.50 - 5.50 M/mcL LAB HEMETOLOGY METHOD 03/05/2025 6:43 PM [facility] Hemoglobin 12.8(L) 13.5 - 17.5 g/dL LAB HEMETOLOGY METHOD 03/05/2025 6:43 PM [facility] Hematocrit 39.2(L) 42.0 - 54.0 % LAB HEMETOLOGY METHOD 03/05/2025 6:43 PM [facility] MCV 105.4(H) 79.0 - 98.0 FL LAB HEMETOLOGY METHOD 03/05/2025 6:43 PM [facility] MCH 34.4(H) 27.0 - 32.0 pcg LAB HEMETOLOGY METHOD 03/05/2025 6:43 PM [facility] MCHC 32.7 32.0 - 37.0 g/dL LAB HEMETOLOGY METHOD 03/05/2025 6:43 PM [facility] RDW 13.0 11.0 - 15.0 % LAB HEMETOLOGY METHOD 03/05/2025 6:43 PM [facility] Platelets 244 130 - 400 K/[facility] LAB HEMETOLOGY METHOD 03/05/2025 6:43 PM [facility] MPV 9.6 7.0 - 11.0 FL LAB HEMETOLOGY METHOD 03/05/2025 6:43 PM [facility] NRBC 0.0 <1.0 % LAB HEMETOLOGY METHOD 03/05/2025 6:43 PM [facility] NRBC Absolute 0.00 <0.10 K/[facility] LAB HEMETOLOGY METHOD 03/05/2025 6:43 PM [facility] Neutrophils Relative 66.5 % LAB HEMETOLOGY METHOD 03/05/2025 6:43 PM [facility] Lymphocytes Relative 25.2 % LAB HEMETOLOGY METHOD 03/05/2025 6:43 PM [facility] Monocytes Relative 5.9 % LAB HEMETOLOGY METHOD 03/05/2025 6:43 PM [facility] Eosinophils Relative 1.4 % LAB HEMETOLOGY METHOD 03/05/2025 6:43 PM [facility] Basophils Relative 0.5 % LAB HEMETOLOGY METHOD 03/05/2025 6:43 PM [facility] Immature Granulocytes Relative 0.5 % LAB HEMETOLOGY METHOD 03/05/2025 6:43 PM [facility] Neutrophils Absolute 3.75 1.50 - 7.00 K/mcL LAB HEMETOLOGY METHOD 03/05/2025 6:43 PM [facility] Lymphocytes Absolute 1.42 1.00 - 5.00 K/mcL LAB HEMETOLOGY METHOD 03/05/2025 6:43 PM [facility] Monocytes Absolute 0.33 0.20 - 1.00 K/mcL LAB HEMETOLOGY METHOD 03/05/2025 6:43 PM [facility] Eosinophils Absolute 0.08 0.00 - 0.50 K/mcL LAB HEMETOLOGY METHOD 03/05/2025 6:43 PM [facility] Basophils Absolute 0.03 0.00 - 0.20 K/mcL LAB HEMETOLOGY METHOD 03/05/2025 6:43 PM [facility] Immature Granulocytes Absolute 0.03 0.00 - 0.03 K/mcL LAB HEMETOLOGY METHOD 03/05/2025 6:43 PM [facility] Blood Venous blood specimen / Unknown Venipuncture / Unknown 03/05/2025 3:18 PM EDT 03/05/2025 3:18 PM EDT us Dannie Adam NP LAB BLOOD ORDERABLES Final Res ult Performing Organization Address [facility] Phone Number [facility] [address] [place] [address], [place] [phone] * Iron and TIBC (03/05/2025 3:18 PM EDT) Iron 117 50 - 160 mcg/dL LAB CHEMISTRY METHOD 03/05/2025 7:33 PM EDT [facility] TIBC 296 250 - 450 mcg/dL LAB CHEMISTRY METHOD 03/05/2025 7:33 PM EDT [facility] Iron Saturation 40 20 - 50 % LAB CHEMISTRY METHOD 03/05/2025 7:33 PM EDT [facility] Blood Venous blood specimen / Unknown Venipuncture / Unknown 03/05/2025 3:18 PM EDT 03/05/2025 3:18 PM EDT us Dannie Adam NP LAB BLOOD ORDERABLES Final Res ult Performing Organization Address [facility] de Phone Number [facility] [address] [place] [address], [place] [phone] * Folate (03/05/2025 3:18 PM EDT) Folate 13.0 2.8 - 17.0 ng/ml LAB CHEMISTRY METHOD 03/05/2025 7:33 PM EDT [facility] Blood Venous blood specimen / Unknown Venipuncture / Unknown 03/05/2025 3:18 PM EDT 03/05/2025 3:18 PM EDT us Dannie Adam WATERSHED MANAGER LAB BLOOD ORDERABLES Final Res ult Performing Organization Address City/[facility]/ZIP Co de Phone Number [facility] [address] [place] [address], * Vitamin B12 (03/05/2025 3:18 PM EDT) [facility] Vitamin B-12 340 250 - 900 pcg/mL LAB CHEMISTRY METHOD 03/05/2025 7:33 PM EDT [facility] Blood Venous blood specimen / Unknown Venipuncture / Unknown 03/05/2025 3:18 PM EDT 03/05/2025 3:18 PM EDT Dannie Adam NP LAB BLOOD ORDERABLES Final Res ult Performing Organization Address [facility]/ZIP Co de Phone Number [facility] [address] [place] [address], * (ABNORMAL) Comprehensive metabolic panel (12/11/2024 9:41 AM EDT) [facility] Sodium 139 133 - 145 mmol/L LAB CHEMISTRY METHOD 12/11/2024 2:53 PM EDT [facility] Potassium 4.4 3.5 - 5.5 mmol/L LAB CHEMISTRY METHOD 12/11/2024 2:53 PM T [facility] Chloride 104 96 - 110 mmol/L LAB CHEMISTRY METHOD 12/11/2024 2:53 PM EDT [facility] CO2 31 21 - 32 mmol/L LAB CHEMISTRY METHOD 12/11/2024 2:53 PM EDT [facility] Anion Gap 4 3 - 11 LAB CHEMISTRY METHOD 12/11/2024 2:53 PM EDT [facility] Glucose 102(H) 70 - 100 mg/dL LAB CHEMISTRY METHOD 12/11/2024 2:53 PM EDT [facility] BUN 12 5 - 25 mg/dL LAB CHEMISTRY METHOD 12/11/2024 2:53 PM [facility] Creatinine 0.88 0.70 - 1.30 mg/dL LAB CHEMISTRY METHOD 12/11/2024 2:53 PM [facility] eGFR 96 >=60 mL/min/1. 73m2 LAB CHEMISTRY METHOD 12/11/2024 2:53 PM [facility] Comment:Calculation based on the Chronic Kidney Disease Epidemiology Collaboration (CKD-EPI) equation refit without adjustment for race. BUN/Creatinine Ratio 13.6 LAB CHEMISTRY METHOD 12/11/2024 2:53 PM [facility] Calcium 9.5 8.5 - 10.5 mg/dL LAB CHEMISTRY METHOD 12/11/2024 2:53 PM [facility] AST (SGOT) 116(H) 10 - 42 unit/L LAB CHEMISTRY METHOD 12/11/2024 2:53 PM [facility] ALT (SGPT) 96(H) 10 - 60 unit/L LAB CHEMISTRY METHOD 12/11/2024 2:53 PM [facility] Alkaline Phosphatase 101 42 - 121 unit/L LAB CHEMISTRY METHOD 12/11/2024 2:53 PM [facility] Total Protein 6.7 6.0 - 8.0 g/dL LAB CHEMISTRY METHOD 12/11/2024 2:53 PM [facility] Albumin 3.8 3.2 - 5.0 g/dL LAB CHEMISTRY METHOD 12/11/2024 2:53 PM [facility] Total Bilirubin 0.5 0.0 - 1.4 mg/dL LAB CHEMISTRY METHOD 12/11/2024 2:53 PM [facility] Blood Venous blood specimen / Unknown Venipuncture / Unknown 12/11/2024 9:41 AM EDT 12/11/2024 9:41 AM EDT Elenita Ho NP LAB BLOOD ORDERABLES Final R esult [facility] [address] [place] [address], * Colonoscopy (04/16/2024) Pathologist [facility] Colonoscopy No Interpretation , Abstracted Anatomical Region Laterality Modality Other Historical Provider HEALTH MAINTENANCE Final Result * (ABNORMAL) Lipid panel (03/27/2024) [facility] LDL/HDL Ratio 3 0 - 4 Triglycerides 202(A) 0 - 150 mg/dL Cholesterol 178 0 - 200 mg/dL HDL 57 >=40 mg/dL LDL Cholesterol 81 0 - 100 mg/dL Blood Venous blood specimen / Unknown Historical Provider LAB BLOOD ORDERABLES Angela l Result * Hepatitis C Screening (01/16/2022) [facility] Hepatitis C Screening Abstracted [facility] Provider HEALTH MAINTENANCE Final Result * HIV Screening (07/03/2012) [facility] HIV Screening Abstracted [facility] Provider HEALTH MAINTENANCE Final Result from Last 3 Months or Most Recently Relevant to Health Maintenance Insurance [facility] Care Teams Hatchery Worker Relationship Specialty Start Date End Date Jan Brush MD [address] [place] [id number] PCP - General Internal Medicine 08/12/20
--- OUTSIDE RECORDS SUMMARY | 2025-05-27 10:45 | XMS_ITS | Clinical Summary ---
Author Organization [email or web address] [facility] Address [address] [place] [address] Care Team Providers Care Hemotherapist Name Role Phone Unavailable Primary Care Provider [...]
== END 2025-05-27 10:01 | disposition home or self-care (01) ==
LOC: HO.NEURO 10:00
DX: R20.0 Anesthesia of skin (principal); R20.2 Paresthesia of skin
CPT/HCPCS: 95885; 95886; 95911

== ENCOUNTER → 2025-05-27 10:02 | Outpatient (BNV) | payer OTHER, SELFPAY | PROVIDERS: Visit Provider Physical Medicine & Rehabilitation | DX: M54.12 Radiculopathy, cervical region (principal) | CPT/HCPCS: 95886; 95911 ==